=== PATIENT | female | born 1980 | race Two or more races ===

== ENCOUNTER 2018-01-10 18:55 | Emergency (ER) | payer OTHER ==
--- NOTE | 2018-01-10 19:18 | PDOC ---
History of Present Illness - General History Source: Patient Exam Limitations: No Limitations - History of Present Illness Initial Comments: 01/10/18 20:15 The patient is a 37 year old female who presents to the emergency department for evaluation of suprapubic pain and right sided back pain. The patient reports a 1 month history of worsening bilateral suprapubic pain with new onset of right sided back pain today. She describes the suprapubic pain as sharp, ranked 10/10 in severity. Patient reports associated symptoms of chills and burning upon urination. She notes her back pain feels similar to her previous pyelonephritis. The patient reports being in a monogamous relationship, only sexually active with her for 16 years. Patient reports her LMP was on , but notes it was heavier and painful than usual. The patient denies history of STIs, chest pain, shortness of breath, headache, and dizziness. Denies fevers, nausea, vomiting, diarrhea, constipation, abnormal vaginal discharge and hematuria. PAST MEDICAL HISTORY: Pyelonephritis, multiple urine infections secondary to IUD (now removed), kidney stones, recurrent UTIs, and ovarian cysts (resolved as per her) PAST SURGICAL HISTORY: Cholecystectomy FAMILY HISTORY: no pertinent history SOCIAL HISTORY: Pt lives with family and is employed. MEDICATIONS: reviewed ALLERGIES: As per nursing notes ROS General: (+)Chills. No fevers, no weakness, no weight loss HEENT: No change in vision. No sore throat,. No ear pain Cardiovascular: No chest pain or shortness of breath Respiratory:No cough, or wheezing. Gastrointestinal: no nausea, vomiting, diarrhea or constipation, No rectal bleeding Genitourinary: (+)Burning upon urination. No hematuria or frequency. Musculoskeletal: (+)Right sided back pain. (+)Suprapubic pain. No joint pain or muscle swelling Neurologic: No headache, vertigo, dizziness or loss of consciousness Psychiatric: nor depression Skin: No rashes or easy bruising Endocrine: no increased thirst or abnormal weight change Allergic: no skin or latex allergy All other systems reviewed and normal PE General: Well-nourished well-developed individual, no acute distress HEENT: Throat: Normal, tonsils normal, no erythema or exudate Neck: Supple, no meningeal signs, no lymphadenopathy Eyes:Pupils equal reactive and round, extraocular motion intact Chest: Nontender to palpation Cardiac: S1-S2 normal, regular rate and rhythm, no murmurs rubs or gallops Respiratory: Lungs clear to auscultation bilateral Abdomen: (+)Tenderness to palpation of bilateral adnexal in suprapubic area. (+) Right flank tenderness. Pelvic: Speculum: (+)Moderate amount of green discharge. Bimanual exam: (+) cervical motion tenderness. (+)bilateral adnexal tenderness. No adnexal masses. Extremities: Warm, dry, no cyanosis, clubbing, or edema Skin: No rashes Neuro: Alert and oriented x3, nonfocal exam, grossly intact, normal gait Psych: Normal mood and affect <Adama Quinn - Last Filed: 01/10/18 20:17> - General History Source: Patient Exam Limitations: No Limitations - History of Present Illness Initial Comments: 01/10/18 20:39 A portion of this note was documented by scribe services under my direction. I have reviewed the details of the note, within reason, and agree with the documentation. The case summary and management plan written by me. Assessment and plan: This is a 37-year-old female with history pyelonephritis in the past secondary to IUD. Patient had the IUD removed and has not had any more urinary tract and infections until today when she came in complaining of symptoms of a urinary tract infection. Patient also has history of kidney stones so was unclear from her history whether was kidney stones or urinary tract infection. In addition to that patient was complaining of adnexal and suprapubic pain. Patient had a CAT scan to rule out kidney stone versus pyelonephritis, patient had a urinalysis that did show 1+ white cells but no significant bacteria and a trace red cells, based on my pelvic exam patient most likely has a sexual transmitted infection so she was given ceftriaxone and azithromycin to cover for chlamydia and gonorrhea. A RPR was sent. 01/10/18 23:42 Patient's ultrasound shows bilateral complex cystic structures in the ovaries. The ultrasound report suggested they very well could be ovarian endometriomas. Patient was given copy of her ultrasound and she has an OB that she will call in the morning and get a follow-up appointment. Prescription percent to her pharmacy for pain medication and nausea medication and Flomax for the renal colic and the pelvic pain. Patient discharged home with her and daughters <eVro Abraham I - Last Filed: 01/10/18 23:43> - General Chief Complaint: Urinary Problem Stated Complaint: URINARY SX, PELVIC, BACK PAIN Time Seen by Provider: 01/10/18 19:16 Past History <Adama Quinn - Last Filed: 01/10/18 20:17> - Past Medical History COPD: No Disorders: Yes (H/O PYELONEPHRITIS) Hypercholesterolemia: Yes - Surgical History Cholecystectomy: Yes - Reproductive History Is Patient Now?: No - Suicide/Smoking/Psychosocial Hx Smoking History: Never smoked Have you smoked in the past 12 months: No Hx Alcohol Use: No <Vero Abraham I - Last Filed: 01/10/18 23:43> - Past Medical History Allergies/Adverse Reactions: Allergies Allergy/AdvReac Type Severity Reaction Status Date / Time Iodinated Contrast- Oral and Allergy Verified 01/10/18 20:07 IV Dye VITAMIN B COMPLEX- Allergy Verified 01/10/18 21:03 IV CONTRAST DYE Allergy Uncoded 01/10/18 18:56 Home Medications: Ambulatory Orders Ibuprofen 600 mg PO ASDIR 01/10/18 Naproxen [Naprosyn] 500 mg PO BID #28 tablet 01/10/18 Ondansetron [Zofran Odt -] 4 mg SL TID #14 od.tablet 01/10/18 Tamsulosin HCl [Flomax] 0.4 mg PO DAILY #30 cap.er.24h 01/10/18 *Physical Exam - Vital Signs Last Vital Signs Temp Pulse Resp BP Pulse Ox 98.3 F 72 18 115/61 100 01/10/18 18:55 01/10/18 18:55 01/10/18 18:55 01/10/18 18:55 01/10/18 18:55 <Adama Quinn - Last Filed: 01/10/18 20:17> - Vital Signs Last Vital Signs Temp Pulse Resp BP Pulse Ox 98.3 F 72 18 115/61 100 01/10/18 18:55 01/10/18 18:55 01/10/18 18:55 01/10/18 18:55 01/10/18 18:55 <Vero Abraham I - Last Filed: 01/10/18 23:43> ED Treatment Course - ADDITIONAL ORDERS Additional order review: Laboratory Results 01/10/18 19:28 Urine Color Yellow Urine Appearance Clear Urine pH 5.5 Ur Specific [place] <= 1.005 Urine Protein Negative Urine Glucose (UA) Negative Urine Ketones Negative Urine Blood Trace-lysed H Urine Nitrite Negative Urine Bilirubin Negative Urine Urobilinogen 0.2 Ur Leukocyte Esterase 1+ H Urine RBC 1-2 Urine WBC 2-5 Ur Epithelial Cells Few Urine Bacteria Few Urine HCG, Qual Negative <Adama Quinn - Last Filed: 01/10/18 20:17> - LABORATORY CBC & Chemistry Diagram: 01/10/18 20:20 01/10/18 20:20 <Vero Abraham I - Last Filed: 01/10/18 23:43> *DC/Admit/Observation/Transfer - Attestations Scribe Attestion: Documentation prepared by Adama Quinn, acting as medical equipment sales for Vero Abraham MD. <Adama Quinn - Last Filed: 01/10/18 20:17> - Discharge Dispostion Decision to Admit order: No <Vero Abraham I - Last Filed: 01/10/18 23:43> Diagnosis at time of Disposition: Kidney stone, Pelvic pain - Discharge Dispostion Disposition: HOME Condition at time of disposition: Stable - Prescriptions Prescriptions: Naproxen [Naprosyn] 500 mg PO BID #28 tablet Ondansetron [Zofran Odt -] 4 mg SL TID #14 od.tablet Tamsulosin HCl [Flomax] 0.4 mg PO DAILY #30 cap.er.24h - Patient Instructions Additional Instructions: For the pain take naproxen 1 tablet twice a day take with food don't take on an empty stomach and send a prescription to her pharmacy. Call your OB doctor in the morning and let your OB know that you're in the emergency room and had an abnormal ultrasound that we feel is important you follow-up with your OB as soon as possible. Make sure you stay well hydrated. I also sent a prescription to her pharmacy for a medication called Flomax to help keep the urine flowing. If you develop nausea when the kidney stone passes you can take Zofran 1 tablet as often as 3 times a day. A send a prescription to your pharmacy for the Zofran also If any your cultures are positive we will call you and let you know. Return to the emergency department immediately with ANY new, persistent or worsening symptoms. Continue any medications as previously prescribed by your physician. You should follow up with your primary doctor as soon as possible regarding today's emergency department visit. . Please make sure your doctor reviews the results of your emergency evaluation. Thank you for coming to the Emergency Department today for your care. It was a pleasure to see you today. Please note that your evaluation is INCOMPLETE until you follow-up with your doctor.
[2018-01-10 19:36] LABS: PH,URINE 5.5 (4.5-8); URINE APPEARANCE Clear; URINE BILIRUBIN Negative (NEGATIVE); URINE COLOR Yellow; URINE GLUCOSE (UA) Negative (NEGATIVE); URINE KETONE Negative (NEGATIVE); URINE NITRITE Negative (NEGATIVE); URINE PROTEIN Negative (NEGATIVE); URINE UROBILINOGEN 0.2 (0.2-1.0)
[2018-01-10 19:38] LABS: URINE LEUK ESTERASE 1+ (NEGATIVE)
[2018-01-10 19:42] LABS: HCG,QUALITATIVE URINE Negative
[2018-01-10 19:43] VITALS: BP 115/61; PULSE 72; TEMP 98.3; BMI 25.0
[2018-01-10] MEDS ORDERED: SODIUM CHLORIDE 1,000 ML IV ONE (19:49)
[2018-01-10 19:59] LABS: EPI CELLS FEW /HPF
[2018-01-10 20:00] LABS: URINE BACTERIA FEW /hpf (NEGATIVE)
[2018-01-10] MEDS ORDERED: KETOROLAC TROMETHAMINE 30 MG/1 ML VIAL IVPUSH ONE (20:15)
[2018-01-10] MEDS ORDERED: AZITHROMYCIN 1 GM PACKET PO ONE (20:16)
[2018-01-10] MEDS ORDERED: KETOROLAC TROMETHAMINE 30 MG/1 ML VIAL ONE (20:29)
[2018-01-10] MEDS ORDERED: AZITHROMYCIN 250 MG TABLET ONE (20:29)
[2018-01-10 20:37] LABS: BASO % 3.3 % (0-2.0); EOS % 2.9 % (0-4.5); HEMATOCRIT 39.5 % (32.4-45.2); HEMOGLOBIN 13.5 GM/dl (10.7-15.3); LYMPH % 35.7 % (8-40); MCH 30.3 pg (25.7-33.7); MCHC 34.2 g/dl (32.0-36.0); MEAN CELL VOLUME 88.5 fl (80-96); MEAN PLT VOLUME 9.9 fl (7.5-11.1); NEUT % 47.1 % (42.8-82.8); PLATELET COUNT 233 K/MM3 (134-434); RBC 4.46 M/mm3 (3.60-5.2); RDW 12.3 % (11.6-15.6); WHITE BLOOD COUNT 6.5 K/mm3 (4.0-10.8)
[2018-01-10 20:51] LABS: ALBUMIN 4.4 g/dl (3.5-5.0); ALK PHOS 73 U/L (32-92); ANION GAP 5 MMOL/L (8-16); BLOOD UREA NITROGEN 13 mg/dl (7-18); CALCIUM 9.2 mg/dl (8.4-10.2); CHLORIDE 103 mmol/L (98-107); CO2 25 mmol/L (22-28); CREATININE 0.7 mg/dl (0.6-1.3); GLUCOSE,RANDOM 93 mg/dl (74-106); POTASSIUM 3.7 mmol/L (3.5-5.1); SGOT/AST 20 U/L (10-42); SGPT/ALT 17 U/L (10-40); SODIUM 133 mmol/L (136-145); TOT PROT 7.6 g/dl (6.4-8.3)
== END 2018-01-10 23:47 | disposition home or self-care (01) ==
LOC: FER 18:55
PROC: 3E0333Z Introduction of Anti-inflammatory into Peripheral Vein, Percutaneous Approach (ICD-10-PCS; principal; 2018-01-10)
PROC: 3E0337Z Introduction of Electrolytic and Water Balance Substance into Peripheral Vein, Percutaneous Approach (ICD-10-PCS; 2018-01-10)
DX: N20.0 Calculus of kidney (principal); R10.2 Pelvic and perineal pain
CPT/HCPCS: 36415; 74176-TC; 76830-TC; 76856-TC; 80053; 81003; 81015; 84703; 85025; 86593; 87086; 87186; 87491; 87591; 99282-25; J7030

== ENCOUNTER 2020-01-20 14:06 | Emergency (ER) | payer OTHER ==
[2020-01-20 14:52] VITALS: BP 126/77; PULSE 78; TEMP 98.1; BMI 23.5
[2020-01-20] MEDS ORDERED: KETOROLAC TROMETHAMINE 30 MG/1 ML VIAL IM ONE (15:00)
[2020-01-20] MEDS ORDERED: LIDOCAINE 5% TOPICAL PATCH TP ONE (15:00)
[2020-01-20] MEDS ORDERED: LIDOCAINE 5% TOPICAL PATCH ONE (15:07)
[2020-01-20] MEDS ORDERED: KETOROLAC TROMETHAMINE 30 MG/1 ML VIAL ONE (15:07)
[2020-01-20 15:34] LABS: EPITHELIAL CELLS MODERATE /hpf
--- NOTE | 2020-01-20 16:02 | PDOC ---
Documentation entered by Torri Alba SCRIBE, acting as scribe for Jocelyn Merida MD. Jocelyn Merida MD: This documentation has been prepared by the scribe, Torri Alba SCRIBE, under my direction and personally reviewed by me in its entirety. I confirm that the documentation accurately reflects all work, treatment, procedures, and medical decision making performed by me. History of Present Illness - General Chief Complaint: Urinary Problem Stated Complaint: burning upon urination History Source: Patient Exam Limitations: No Limitations - History of Present Illness Initial Comments: 01/20/20 14:42 The patient is a 39-year-old female with a past medical history significant for Endometriosis, Kidney stones, Pyelonephritis, Ovarian cysts (s/p cyst removal) who presents to the emergency department with urinary symptoms and lower back pain. The patient presents with 1-week history of dysuria and urinary frequency, associated with lower abdominal pain. The patient reports the symptoms are similar to prior episodes of UTI. The patient reports an associated symptom of an acute onset of lower back pain yesterday afternoon after sneezing. The patient describes the pain as 10-20/10 in severity, with difficulty moving and lying down. The patient reports taking naproxen x2 for the pain, without relief. Denies taking any medication today. The patient reports since the onset of the back pain, she hasnt had a bowel movement.The patient reports she has an IUD in place. Denies fever, chills, sore throat, runny nose, chest pain, SOB, palpitation, dizziness, weakness, N, V, D, hematuria, urinary urgency, leg swelling, No new changes in medications. Denies heavy lifting, recent injury, trauma or accidents. Denies taking any pain medication today. Allergies: Seasonal allergies, contrast, vitamin b complex Past Medical History: Endometriosis, Ovarian cyst (s/p cyst removal), s/p b/l salpingectomy, Pyelonephritis, Kidney stones. Social history: Lives with family. No tobacco, ETOH or drug use. Surgical history: Ovarian cyst removal, b/l salpingectomy, cholecystectomy Meds: as documented in EMR PMD: Dr. Jany Obrien 01/20/20 17:23 Past History - Medical History Allergies/Adverse Reactions: Allergies Allergy/AdvReac Type Severity Reaction Status Date / Time Iodinated Contrast Media Allergy Verified 01/10/18 20:07 [Iodinated Contrast- Oral and IV Dye] VITAMIN B COMPLEX- Allergy Verified 01/10/18 21:03 IV CONTRAST DYE Allergy Uncoded 01/10/18 18:56 Home Medications: Ambulatory Orders Ibuprofen 600 mg PO ASDIR 01/10/18 Naproxen [Naprosyn] 500 mg PO BID #28 tablet 01/10/18 Ondansetron [Zofran Odt -] 4 mg SL TID #14 od.tablet 01/10/18 Tamsulosin HCl [Flomax] 0.4 mg PO DAILY #30 cap.er.24h 01/10/18 Ibuprofen 600 mg PO QID PRN #20 tablet 01/20/20 Lidocaine 5% Patch [Lidoderm Patch -] 1 patch TP DAILY #7 patch 01/20/20 Nitrofurantoin Monohyd/M-Cryst [Macrobid -] 100 mg PO BID #14 capsule 01/20/20 Phenazopyridine HCl [Pyridium -] 100 mg PO BID 3 Days #6 tablet 01/20/20 COPD: No Disorders: Yes (H/O PYELONEPHRITIS) Hypercholesterolemia: Yes - Surgical History Cholecystectomy: Yes - Reproductive History Is Patient Now?: No - Immunization History Immunization Up to Date: Yes - Psycho-Social/Smoking History Smoking History: Never smoked Have you smoked in the past 12 months: No Information on smoking cessation initiated: No - Substance Abuse Hx (Audit-C & DAST Scrn) How often the patient has a drink containing alcohol: Never Score: In Men: 4 or > Positive; In Women: 3 or > Positive: 0 Screen Result (Pos requires Nsg. Audit-10AR): Negative Review of Systems - Review of Systems Able to Perform ROS?: Yes Comments:: 01/20/20 14:34 GENERAL/CONSTITUTIONAL: No fever or chills. No weakness. no sweats. HEAD, EYES, EARS, NOSE AND THROAT: No change in vision or hearing. No ear pain or discharge. No sore throat or mouth pain. No difficulty swallowing. No congestion. CARDIOVASCULAR: No chest pain or palpitations, syncope or edema. RESPIRATORY: No SOB, cough, wheezing, or hemoptysis. GASTROINTESTINAL No nausea/vomiting. No diarrhea or constipation. No bloody stools. GENITOURINARY: ++dysuria and urinary frequency. No hematuria, urgency or other changes. MUSCULOSKELETAL: +lower back pain. No other joint or muscle swelling or pain. No decreased range of motion. No neck pain. SKIN: No rash or changes in skin color or lesions. No wounds. NEUROLOGIC: alert and oriented appropriately No headache, dizziness, loss of consciousness, or change in strength/sensation. No gait instability. HEMATOLOGIC/LYMPHATIC: No anemia, easy bruising/bleeding, or history of blood clots. No swollen lymph nodes ALLERGIC/IMMUNOLOGIC: No allergies PSYCH: no anxiety/depression All other systems reviewed and negative, or as documented in HPI. *Physical Exam - Vital Signs Last Vital Signs Temp Pulse Resp BP Pulse Ox 98.1 F 78 18 126/77 100 01/20/20 14:01/20/20 14:01/20/20 14:01/20/20 14:01/20/20 14:09 - Physical Exam 01/20/20 14:35 General: Well appearing, awake and alert, NAD. HEENT: NCAT, PERRL, EOMI, clear conjunctiva, anicteric, moist mucous membranes, clear oropharynx, no oral lesions.. Neck: neck supple, FROM Resp: CTAB, normal and even respirations, no respiratory distress CVS: RRR, no murmurs, 2+ peripheral pulses throughout, no peripheral edema Abdomen: +mild suprapubic tenderness. soft, ND, no rebound or guarding. No CVAT. Back: nontender, normal inspection and ROM MSK: no edema, MAYEN x4, ROM intact. No clubbing or cyanosis. normal bulk and tone. Extremities: no calf tenderness Neuro: alert, oriented appropriately; no focal neurologic deficits Skin: warm and well perfused, cap refill <2 sec, normal color Medical Decision Making - Medical Decision Making 01/20/20 17:24 Vital Signs Temp Pulse Resp BP Pulse Ox 98.1 F 78 18 126/77 100 01/20/20 14:01/20/20 14:01/20/20 14:01/20/20 14:01/20/20 14:09 vitals reviewed wnl. no fever, nontoxic appearing pt has suprapubic abdominal discomfort a/w urinary sx, dysuria, anamaria with UTI will treat as uncomplicated cystitis. prelim UA with some blood, does not get periods really and has IUD in place, so unlikely related. neg preg test f/u urine culture rx macrobid, prn pyridium for dysuria. pt without s/s to suggest acute pyelo. no flank pain or tenderness. unlikely back pain appears more msk related, paralumbar sx. lido patch. given toradol with improvement ROM improved, ambulatory without difficulty gait is stable. NVI, no focal neuro deficits. DC stable condition, pt made aware of impression and plan, agreeable. return precautions. analgesia and abx regimen discussed. Discharge - Discharge Information Problems reviewed: Yes Clinical Impression/Diagnosis: UTI (urinary tract infection) Qualifiers: Urinary tract infection type: acute cystitis Hematuria presence: with hematuria Qualified Code(s): N30.01 - Acute cystitis with hematuria Back pain Qualifiers: Back pain location: low back pain Chronicity: acute Back pain laterality: unspecified Sciatica presence: unspecified whether sciatica present Qualified Code(s): M54.5 - Low back pain Condition: Good Disposition: HOME - Admission No - Additional Discharge Information Prescriptions: Ibuprofen 600 mg PO QID PRN #20 tablet PRN Reason: Moderate Pain Lidocaine 5% Patch [Lidoderm Patch -] 1 patch TP DAILY #7 patch Nitrofurantoin Monohyd/M-Cryst [Macrobid -] 100 mg PO BID #14 capsule Phenazopyridine HCl [Pyridium -] 100 mg PO BID 3 Days #6 tablet - Follow up/Referral Referrals: ON STAFF,NOT [Primary Care Provider] - [facility] [Provider Group] [facility] [Provider Group] - Patient Discharge Instructions Patient Printed Discharge Instructions: DI for Low Back Pain, DI for Urinary Tract Infection (UTI), DI for Dysuria -- Adult, Exercise May Reduce Risk of Low Back Pain Additional Instructions: 1) Please follow-up with your primary care doctor in the next 1-2 days. Please call tomorrow for for any urgent issues. 2) You were given a copy of the tests performed today. Please bring the results with you and review them with your primary care doctor. Your laboratory / imaging results were normal, follow up your urine culture 3) If you have any worsening of symptoms or any other concerns please return to the ED immediately. Return if worsening symptoms including fevers, headache, vomiting, visual or hearing disturbances, abdominal pain, chest pain, shortness of breath, syncope, dehydration, inability to take things by mouth/vomiting, altered mental status, or worsening concerning symptoms. 4) Please continue taking your home medications as directed. your medications on discharge include pyridium twice a day for burning (this can turn your urine orange which is normal) and macrobid twice a day x 1 week . side effects may include upset stomach, abdominal pain, vomiting, or diarrhea. do not drink alcohol with your medications. you can take ibuprofen as needed every 6 hours or tylenol every 6 hours for pain control lidoderm patch for your back to help with the pain, 12 hours on and 12 hours off. Stay well hydrated and rest adequately. Make an appointment. If you cannot follow-up with your primary care doctor please return to the ED - Post Discharge Activity
== END 2020-01-20 16:15 | disposition home or self-care (01) ==
LOC: FER 14:06 → SUPCPDRO 14:06 → FER 16:15
PROC: 3E0233Z Introduction of Anti-inflammatory into Muscle, Percutaneous Approach (ICD-10-PCS; principal; 2020-01-20)
DX: N30.01 Acute cystitis with hematuria (principal); M54.5 Low back pain
CPT/HCPCS: 81003; 81015; 84703; 87086; 87186; 99284-25

== ENCOUNTER 2020-06-24 14:52 | Inpatient (IN) | payer OTHER ==
[2020-06-24] MEDS ORDERED: LACTATED RINGERS SOLUTION 1000 ML INFUS.BAG IV ONE (15:33)
[2020-06-24] MEDS ORDERED: ACETAMINOPHEN 1000 MG/100 ML VIAL (NON FORMULARY) IVPB ONE (15:33)
[2020-06-24] MEDS ORDERED: ONDANSETRON 4 MG/2 ML VIAL IVPUSH ONE (15:33)
[2020-06-24 15:51] LABS: HCG,QUALITATIVE URINE Negative
[2020-06-24] MEDS ORDERED: ACETAMINOPHEN INJECTION 100 ML IVPB ONE (16:00)
[2020-06-24] MEDS ORDERED: ONDANSETRON 4 MG/2 ML VIAL ONE (16:00)
[2020-06-24 16:35] LABS: BASO % 0.4 % (0-2.0); EOS % 1.4 % (0-4.5); HEMATOCRIT 40.5 % (32.4-45.2); HEMOGLOBIN 13.7 GM/dl (10.7-15.3); LYMPH % 14.7 % (8-40); MCH 30.4 pg (25.7-33.7); MCHC 33.8 g/dl (32.0-36.0); MEAN CELL VOLUME 89.9 fl (80-96); MEAN PLT VOLUME 9.3 fl (7.5-11.1); MONO % 8.1 % (3.8-10.2); NEUT % 75.4 % (42.8-82.8); PLATELET COUNT 246 K/MM3 (134-434); RDW 11.4 % (11.6-15.6); WHITE BLOOD COUNT 12.3 K/mm3 (4.0-10.8)
[2020-06-24 16:45] LABS: ALBUMIN 4.6 g/dl (3.4-5.0); BILIRUBIN,TOTAL 0.6 mg/dl (0.2-1); CALCIUM 9.1 mg/dl (8.5-10); POTASSIUM 4.2 mmol/L (3.5-5.1); TOT PROT 7.8 g/dl (6.4-8.2)
[2020-06-24] MEDS ORDERED: CEFTRIAXONE 1 GM in DEXTROSE 5%-WATER - 100 ML IVPB ONE (17:55)
[2020-06-24] MEDS ORDERED: TAMSULOSIN HCL 0.4 MG CAP PO ONE (18:34)
[2020-06-24] MEDS ORDERED: cefTRIAXone SODIUM 1 GM VIAL ONE (19:20)
[2020-06-24] MEDS ORDERED: TAMSULOSIN HCL 0.4 MG CAP ONE (19:20)
[2020-06-24] MEDS ORDERED: ONDANSETRON 4 MG/2 ML VIAL IVPUSH PRN (22:00)
[2020-06-25] MEDS: DEXTROSE 5%-0.45% SALINE 1,000 ML IV SCH ×2 (00:29→22:10)
[2020-06-25] MEDS ORDERED: ACETAMINOPHEN 1000 MG/100 ML VIAL (NON FORMULARY) IVPB PRN (01:02)
[2020-06-25] MEDS: MORPHINE SULFATE 2 MG/ML VIAL IVPUSH PRN ×2 (01:08→22:04)
[2020-06-25 04:20] VITALS: BMI 26.6
[2020-06-25 08:12] LABS: EOS % 4.8 % (0-4.5); HEMATOCRIT 39.1 % (32.4-45.2); HEMOGLOBIN 12.7 GM/dl (10.7-15.3); LYMPH % 39.2 % (8-40); MCH 29.9 pg (25.7-33.7); MCHC 32.5 g/dl (32.0-36.0); MEAN PLT VOLUME 9.3 fl (7.5-11.1); PLATELET COUNT 228 K/MM3 (134-434); RBC 4.25 M/mm3 (3.60-5.2); RDW 11.9 % (11.6-15.6); WHITE BLOOD COUNT 7.7 K/mm3 (4.0-10.8)
[2020-06-25 08:26] LABS: ALBUMIN 3.8 g/dl (3.4-5.0); BILIRUBIN,TOTAL 0.8 mg/dl (0.2-1); CREATININE 0.7 mg/dl (0.55-1.3); POTASSIUM 3.7 mmol/L (3.5-5.1); TOT PROT 6.6 g/dl (6.4-8.2)
[2020-06-25] MEDS ORDERED: TAMSULOSIN HCL 0.4 MG CAP PO SCH (08:30)
[2020-06-25] MEDS ORDERED: cefTRIAXone SODIUM 1 GM VIAL ONE (09:51)
[2020-06-25] MEDS ORDERED: DEXTROSE 5%-WATER - 50 ML IVPB ONE (09:51)
[2020-06-25] MEDS ORDERED: CEFTRIAXONE 1 GM in DEXTROSE 5%-WATER - 50 ML IVPB SCH (10:00)
[2020-06-26] MEDS ORDERED: ONDANSETRON 4 MG/2 ML VIAL IVPUSH PRN (03:49)
[2020-06-26] MEDS: DEXTROSE 5%-0.45% SALINE 1,000 ML IV SCH ×2 (04:12→09:30)
[2020-06-26] MEDS: MORPHINE SULFATE 2 MG/ML VIAL IVPUSH PRN ×3 (04:51→19:40)
[2020-06-26] MEDS ORDERED: cefTRIAXone SODIUM 1 GM VIAL ONE (09:25)
[2020-06-26] MEDS ORDERED: DEXTROSE 5%-WATER - 50 ML IVPB ONE (09:25)
[2020-06-26] MEDS: CEFTRIAXONE 1 GM in DEXTROSE 5%-WATER - 50 ML IVPB SCH (09:31)
[2020-06-26] MEDS: TAMSULOSIN HCL 0.4 MG CAP PO SCH (09:36)
[2020-06-27] MEDS: DEXTROSE 5%-0.45% SALINE 1,000 ML IV SCH ×3 (06:59→16:50)
[2020-06-27] MEDS ORDERED: DEXTROSE 5%-WATER - 50 ML IVPB ONE (09:09)
[2020-06-27] MEDS ORDERED: cefTRIAXone SODIUM 1 GM VIAL ONE (09:09)
[2020-06-27] MEDS: TAMSULOSIN HCL 0.4 MG CAP PO SCH (09:11)
[2020-06-27] MEDS: CEFTRIAXONE 1 GM in DEXTROSE 5%-WATER - 50 ML IVPB SCH (09:11)
[2020-06-27] MEDS: MORPHINE SULFATE 2 MG/ML VIAL IVPUSH PRN ×2 (09:16)
[2020-06-27 10:15] LABS: HEMATOCRIT 36.8 % (32.4-45.2); HEMOGLOBIN 12.3 GM/dL (10.7-15.3); MCH 30.3 pg (25.7-33.7); MCHC 33.5 g/dl (32.0-36.0); MEAN CELL VOLUME 90.5 fl (80-96); MEAN PLT VOLUME 10.1 fl (7.5-11.1); PLATELET COUNT 219 K/MM3 (134-434); RBC 4.06 M/mm3 (3.60-5.2); RDW 12.5 % (11.6-15.6); WHITE BLOOD COUNT 8.9 K/mm3 (4.0-10.0)
[2020-06-27 10:21] LABS: ALBUMIN 3.5 g/dl (3.4-5.0); BLOOD UREA NITROGEN 8.9 mg/dL (7-18); CALCIUM 8.5 mg/dL (8.5-10.1)
[2020-06-27 10:25] LABS: BILIRUBIN,TOTAL 0.4 mg/dL (0.2-1); CREATININE 0.7 mg/dL (0.55-1.3); TOT PROT 6.9 g/dl (6.4-8.2)
[2020-06-27] MEDS ORDERED: MIDAZOLAM HCL 2 MG/2 ML SINGLE DOSE VIAL ONE (14:54)
[2020-06-27] MEDS ORDERED: PROPOFOL 20 ML ONE (14:54)
[2020-06-27] MEDS ORDERED: PROMETHAZINE HCL 25 MG/1 ML VIAL IVPUSH PRN ×2 (15:18→16:18)
[2020-06-27] MEDS ORDERED: ONDANSETRON 4 MG/2 ML VIAL IVPUSH PRN ×3 (15:18→16:18)
[2020-06-27] MEDS ORDERED: LACTATED RINGERS SOLUTION 1,000 ML IV SCH ×2 (15:30→16:18)
[2020-06-27] MEDS ORDERED: ceFAZolin SODIUM 1 GM VIAL IVPB ONE (15:31)
[2020-06-27] MEDS ORDERED: MORPHINE SULFATE 2 MG/ML VIAL IVPUSH PRN (16:18)
[2020-06-28] MEDS: DEXTROSE 5%-0.45% SALINE 1,000 ML IV SCH (02:00)
[2020-06-28] MEDS ORDERED: TAMSULOSIN HCL 0.4 MG CAP PO SCH (08:30)
[2020-06-28 09:23] LABS: HEMATOCRIT 38.6 % (32.4-45.2); HEMOGLOBIN 12.8 GM/dL (10.7-15.3); MCH 30.1 pg (25.7-33.7); MCHC 33.2 g/dl (32.0-36.0); MEAN CELL VOLUME 90.7 fl (80-96); MEAN PLT VOLUME 9.7 fl (7.5-11.1); PLATELET COUNT 249 K/MM3 (134-434); RBC 4.26 M/mm3 (3.60-5.2); RDW 12.4 % (11.6-15.6); WHITE BLOOD COUNT 13.9 K/mm3 (4.0-10.0)
[2020-06-28 09:27] LABS: POTASSIUM 4.1 mmol/L (3.5-5.1)
[2020-06-28 09:31] LABS: ALBUMIN 3.7 g/dl (3.4-5.0); CALCIUM 9.3 mg/dL (8.5-10.1)
[2020-06-28 09:35] LABS: CREATININE 0.7 mg/dL (0.55-1.3)
[2020-06-28 09:36] LABS: BILIRUBIN,TOTAL 0.6 mg/dL (0.2-1); TOT PROT 7.5 g/dl (6.4-8.2)
[2020-06-28] MEDS ORDERED: CEFTRIAXONE 1 GM in DEXTROSE 5%-WATER - 50 ML IVPB SCH (10:00)
[2020-06-28] MEDS ORDERED: DEXTROSE 5%-WATER - 50 ML IVPB ONE (11:16)
[2020-06-28] MEDS ORDERED: cefTRIAXone SODIUM 1 GM VIAL ONE (11:16)
[2020-06-28 15:20] VITALS: BP 106/58; PULSE 81; TEMP 98.2
== END 2020-06-28 17:00 | disposition home or self-care (01) | DRG 661 ==
LOC: FER 14:52 → FM/S 20:21 → J6S 06-25 19:07
PROVIDERS: ATTEND Student in an Organized Health Care Education/Training Program
PROC: 0TC68ZZ Extirpation of Matter from Right Ureter, Via Natural or Artificial Opening Endoscopic (ICD-10-PCS; principal; 2020-06-24)
PROC: 0T768DZ Dilation of Right Ureter with Intraluminal Device, Via Natural or Artificial Opening Endoscopic (ICD-10-PCS; 2020-06-24)
DX: N13.2 Hydronephrosis with renal and ureteral calculous obstruction (principal); R10.31 Right lower quadrant pain; N85.8 Other specified noninflammatory disorders of uterus
CPT/HCPCS: 36415; 74176-TC; 76000-TC-FY; 80053; 81003; 81015; 83605; 84703; 85025; 85027; 87040; 94760; 99285-25; C9803; J0131; U0003

== ENCOUNTER 2022-01-17 10:43 | Emergency (ER) | payer OTHER ==
[2022-01-17 10:49] VITALS: BP 123/66; PULSE 74; RESP 18; TEMP 98; BMI 26.6
[2022-01-17 11:46] LABS: HCG,QUALITATIVE URINE Negative
[2022-01-17 11:57] LABS: EPITHELIAL CELLS FEW /hpf
[2022-01-17] MEDS ORDERED: ACETAMINOPHEN 325 MG TABLET (FP) PO ONE (12:13)
[2022-01-17] MEDS ORDERED: ACETAMINOPHEN 325 MG TABLET (FP) ONE (12:17)
[2022-01-17 13:59] LABS: SYPHILIS W/ RPR CONF NON-REACTIVE (NONREACTIVE)
[2022-01-17 14:28] LABS: HIV INTERPRETATION NEGATIVE (NEGATIVE)
[2022-01-17] MEDS ORDERED: metroNIDAZOLE 250 MG TABLET PO ONE (15:07)
[2022-01-17] MEDS ORDERED: CIPROFLOXACIN 250 MG TABLET (RESTRICTED TO ID) PO ONE ×2 (15:07→15:09)
[2022-01-17] MEDS ORDERED: metroNIDAZOLE 250 MG TABLET ONE (15:08)
== END 2022-01-17 15:16 | disposition home or self-care (01) ==
LOC: FER 10:43
DX: R82.81 Pyuria (principal); N39.0 Urinary tract infection, site not specified; R10.2 Pelvic and perineal pain
CPT/HCPCS: 36415; 76830-TC; 81003; 81015; 84703; 86780; 87086; 87186; 87389; 87491; 87591; 99283-25

== ENCOUNTER 2023-08-25 11:40 | Emergency (ER) | payer OTHER ==
[2023-08-25 11:46] VITALS: BMI 26.6
[2023-08-25] MEDS ORDERED: ACETAMINOPHEN 500 MG TABLET (FP) ONE (12:18)
[2023-08-25] MEDS: ACETAMINOPHEN 500 MG TABLET (FP) PO ONE (12:21)
[2023-08-25 13:05] LABS: EPITHELIAL CELLS 0-5 /hpf
[2023-08-25] MEDS ORDERED: KETOROLAC TROMETHAMINE 15 MG/ML VIAL ONE (13:22)
[2023-08-25] MEDS ORDERED: MAG HYDROX/AL HYDROX/SIMETH 30 ML UNIT-DOSE CUP ONE (13:23)
[2023-08-25] MEDS ORDERED: DEXAMETHASONE 4 MG TABLET (FP) ONE (13:23)
[2023-08-25] MEDS: KETOROLAC TROMETHAMINE 15 MG/ML VIAL IM ONE (13:45)
[2023-08-25] MEDS: DEXAMETHASONE 4 MG TABLET (FP) PO ONE (13:45)
[2023-08-25] MEDS: MAG HYDROX/AL HYDROX/SIMETH 30 ML UNIT-DOSE CUP PO ONE (13:45)
[2023-08-25] MEDS ORDERED: PENICILLIN G BENZATHINE 1,200,000 UNIT/2 ML PFS IM ONE (14:19)
[2023-08-25] MEDS: PENICILLIN G BENZATHINE 1,200,000 UNIT/2 ML PFS IM ONE (14:26)
[2023-08-25 15:15] VITALS: BP 115/67; PULSE 91; RESP 16; TEMP 99.6
== END 2023-08-25 15:45 | disposition home or self-care (01) ==
LOC: FER 11:40
PROC: 3E0233Z Introduction of Anti-inflammatory into Muscle, Percutaneous Approach (ICD-10-PCS; principal; 2023-08-25)
PROC: 3E02329 Introduction of Other Anti-infective into Muscle, Percutaneous Approach (ICD-10-PCS; 2023-08-25)
DX: J02.0 Streptococcal pharyngitis (principal); R10.13 Epigastric pain; R50.9 Fever, unspecified; M79.10 Myalgia, unspecified site; R07.89 Other chest pain; R30.0 Dysuria; Z20.822 Contact with and (suspected) exposure to COVID-19
CPT/HCPCS: 0241U-QW; 71046-TC-FY; 81003; 81015; 84703; 87086; 87651; 93005; 99285-25

== ENCOUNTER 2024-02-26 18:10 | Emergency (ER) | payer OTHER ==
[2024-02-26 18:28] VITALS: BMI 27.6
[2024-02-26] MEDS ORDERED: ACETAMINOPHEN 325 MG TABLET (FP) ONE (19:17)
[2024-02-26] MEDS: ACETAMINOPHEN 325 MG TABLET (FP) PO ONE (19:21)
[2024-02-26 20:23] LABS: HEMATOCRIT 40.5 % (32.4-45.2); HEMOGLOBIN 13.2 G/dL (10.7-15.3); MCH 30.1 pg (25.7-33.7); MCHC 32.6 g/dl (32.0-36.0); MEAN CELL VOLUME 92.2 fl (80-96); MEAN PLT VOLUME 9.1 fl (7.5-11.1); PLATELET COUNT 195.9 10^3/uL (134-434); RBC 4.39 10^6/uL (3.60-5.2); RDW 13.6 % (11.6-15.6); WHITE BLOOD COUNT 14.9 10^3/uL (4.0-10.8)
[2024-02-26 20:31] LABS: PLATELET ESTIMATE ADEQUATE
[2024-02-26 20:49] LABS: ALBUMIN 4.2 g/dl (3.4-5.0); ALK PHOS 73 U/L (45-117); ANION GAP 11 mmol/L (4-13); CALCIUM 9.3 mg/dl (8.5-10.1); CHLORIDE 99 mmol/L (98-107); CO2 21 mmol/L (21-32); CREATININE 0.9 mg/dl (0.6-1.3); GLUCOSE,RANDOM 118 mg/dl (74-106); POTASSIUM 3.8 mmol/L (3.5-5.1); SGOT/AST 24 U/L (15-37); SGPT/ALT 25 U/L (7-52); SODIUM 131 mmol/L (136-145); TOT PROT 7.1 g/dl (6.4-8.2)
[2024-02-26] MEDS ORDERED: IBUPROFEN 600 MG TABLET (FP) PO ONE (21:13)
[2024-02-26] MEDS ORDERED: cefTRIAXone SODIUM 1 GM VIAL ONE (21:17)
[2024-02-26] MEDS ORDERED: AZITHROMYCIN 500 MG VIAL IVPB ONE (21:18)
[2024-02-26] MEDS: SODIUM CHLORIDE 0.9% 500 ML INFUS.BAG IV ONE ×2 (21:29→22:27)
[2024-02-26] MEDS: IBUPROFEN 600 MG TABLET (FP) PO ONE (21:29)
[2024-02-26] MEDS ORDERED: guaiFENesin/CODEINE 10 ML UNIT-DOSE CUPS ONE (21:39)
[2024-02-26] MEDS: CEFTRIAXONE 1 GM in DEXTROSE 5%-WATER - 50 ML IVPB ONE (22:02)
[2024-02-26] MEDS: guaiFENesin/CODEINE 10 ML UNIT-DOSE CUPS PO ONE (22:02)
[2024-02-26] MEDS: AZITHROMYCIN IVPB 500 MG in DEXTROSE 5%-WATER - 250 ML IVPB ONE (22:03)
[2024-02-26 23:05] VITALS: BP 93/59; RESP 18; TEMP 100.8
[2024-02-27 05:03] VITALS: PULSE 86
== END 2024-02-26 23:48 | disposition home or self-care (01) ==
LOC: FER 18:10
DX: R05.9 Cough, unspecified (principal); J18.9 Pneumonia, unspecified organism; Z20.822 Contact with and (suspected) exposure to COVID-19
CPT/HCPCS: 0241U-QW; 36415; 71046-TC-FY; 80053; 85027; 93005; 99285-25